=== PATIENT | female | born 1980 | race Caucasian/White ===

== ENCOUNTER → 2016-06-25 | Outpatient (CLI) | payer BC ==
--- NOTE | 2016-06-26 16:59 | XR ---
EXAMINATION TYPE: XR foot complete LT DATE OF EXAM: 06/25/2016 2:37 PM COMPARISON: NONE HISTORY: 28 year-old female left foot pain, plantar fasciitis TECHNIQUE: 3 views FINDINGS: Very mild degenerative spurring at the first MTP joint. No acute fracture, subluxation, or dislocation. There is a small plantar calcaneal spur noted. Small delineation to the Achilles tendon. IMPRESSION: Small plantar calcaneal spur.
== END | disposition home or self-care (01) ==
LOC: RADXRYALE 14:21
PROVIDERS: ATTEND Physician Assistant Medical
DX: M77.32 Calcaneal spur, left foot (principal)

== ENCOUNTER → 2017-09-16 | Outpatient (CLI) | payer BC ==
--- NOTE | 2017-09-16 10:56 | XR ---
EXAMINATION TYPE: XR abdomen 2V DATE OF EXAM: 09/16/2017 CLINICAL DATA: 37-year-old female with lower abdominal pain, [facility] COMPARISON: None FINDINGS: No dilated small bowel or air-fluid levels. Scattered air and stool seen throughout the colon extendi ng distally into the rectum. Mild stool burden. No suspicious calcifications identified. IMPRESSION: No evidence of bowel obstruction or free intraperitoneal air.
== END | disposition home or self-care (01) ==
LOC: RADXRYALE 08:46
PROVIDERS: ATTEND Physician Assistant Medical
DX: R10.30 Lower abdominal pain, unspecified (principal)
CPT/HCPCS: 74019

== ENCOUNTER → 2018-05-05 | Outpatient (CLI) | payer BC ==
--- NOTE | 2018-05-05 12:38 | CT ---
EXAMINATION TYPE: CT sinus wo con DATE OF EXAM: 05/05/2018 COMPARISON: None HISTORY: Facial pressure and pain CT DLP: 553 mGycm. Automated Exposure Control for Dose Reduction was Utilized. TECHNIQUE: CT scan of the sinuses is performed without contrast, axial images are obtained, coronal r eformatted images are also reviewed. FINDINGS: There is extensive soft tissue attenuation within the maxillary sinuses and ethmoid air shayne ls compatible with moderate sinusitis. Sphenoid sinus has a normal appearance. Frontal sinuses hypop lastic. The ostiomeatal complex is patent on the right and occluded on the left. There is a slight nasal sept al deviation. Visualized portion of mastoid air cells show no abnormal opacification. The globes are intact bilate rally. IMPRESSION: 1. Moderate sinusitis involving the ethmoid air cells and maxillary sinus with occlusion of the left ostiomeatal complex.
== END | disposition home or self-care (01) ==
LOC: RADCTMAIN 11:58
PROVIDERS: ATTEND Otolaryngology
DX: J32.2 Chronic ethmoidal sinusitis (principal); J32.0 Chronic maxillary sinusitis; J34.89 Other specified disorders of nose and nasal sinuses
CPT/HCPCS: 70486

== ENCOUNTER → 2018-05-11 | Outpatient (CLI) | payer BC ==
--- NOTE | 2018-05-11 11:10 | XR ---
EXAMINATION TYPE: XR chest 2V DATE OF EXAM: 05/11/2018 COMPARISON: NONE TECHNIQUE: PA and lateral views submitted. HISTORY: Cough FINDINGS: The lungs are clear and there is no pneumothorax, pleural effusion, or focal pneumonia. Hypertrophi c and degenerative change spine. No overt failure. IMPRESSION: 1. No acute process.
== END | disposition home or self-care (01) ==
LOC: RADXRYALE 10:53
PROVIDERS: ATTEND Family Medicine
DX: R05 Cough (principal)
CPT/HCPCS: 71046

== ENCOUNTER 2018-05-17 06:58 | Emergency (ER) | payer BC ==
--- NOTE | 2018-05-17 08:00 | ED ---
General Adult HPI - General Chief complaint: ENT Stated complaint: ENT Time Seen by Provider: 05/17/18 07:28 Source: patient, RN notes reviewed Mode of arrival: ambulatory Limitations: no limitations - History of Present Illness Initial comments: 38-year-old female without any significant past medical history presents to the emergency department for a chief complaint of left-sided facial pain. Patient states this is over the maxillary area as well as her left upper teeth. Patient states it is generalized in her upper teeth. Patient states she saw her ENT Dr. Mendes about 5 days ago and had a CAT scan that diagnosed sinusitis. CT obtained on 05/05/2018 did show moderate sinusitis with occlusion of the left ostiomeatal complex. Patient states that when she saw the ENT she did not have significant pain. However the next day she started having left-sided facial pain. She states she started taking Bactrim on for this. She is also taking Flonase. Patient states she is also concerned it may be dental pain. She states her dentist is not open for 2 more hours. She denies having any fevers or chills. Patient has no other complaints at this time including shortness of breath, chest pain, abdominal pain, nausea or vomiting, headache, or visual changes. - Related Data Previous Rx's Medication Instructions Recorded Acetaminophen-Codeine 300-30mg 1 tab PO Q6HR PRN #10 tablet 05/17/18 [Tylenol #3] Amoxicillin/Potassium Clav 1 tab PO Q12HR #20 tab 05/17/18 [Augmentin 875-125 Tablet] Ibuprofen [Motrin] 600 mg PO Q8HR PRN #20 tab 05/17/18 predniSONE 50 mg PO DAILY #5 tablet 05/17/18 Allergies Allergy/AdvReac Type Severity Reaction Status Date / Time No Known Allergies Allergy Verified 05/17/18 07:04 Review of Systems ROS Statement: Those systems with pertinent positive or pertinent negative responses have been documented in the HPI. ROS Other: All systems not noted in ROS Statement are negative. Past Medical History Past Medical History: GERD/Reflux, Rheumatoid Arthritis (RA) History of Any Multi-Drug Resistant Organisms: None Reported Past Surgical History: Orthopedic Surgery Additional Past Surgical History / Comment(s): bilateral feet Past Psychological History: No Psychological Hx Reported Smoking Status: Former smoker Past Alcohol Use History: Occasional Past Drug Use History: None Reported General Exam Limitations: no limitations General appearance: alert, in no apparent distress Head exam: Present: atraumatic, normocephalic, normal inspection Eye exam: Present: normal appearance, PERRL, EOMI. Absent: scleral icterus, conjunctival injection, periorbital swelling ENT exam: Present: mucous membranes moist, TM's normal bilaterally, normal external ear exam, other (Minimal tenderness over maxillary sinus. No erythema or edema present whatsoever.). Absent: normal oropharynx (fillingd noted in left upper teeth) Neck exam: Present: normal inspection, full ROM. Absent: tenderness, meningismus, lymphadenopathy Respiratory exam: Present: normal lung sounds bilaterally. Absent: respiratory distress, wheezes, rales, rhonchi, stridor Cardiovascular Exam: Present: regular rate, normal rhythm, normal heart sounds. Absent: systolic murmur, diastolic murmur, rubs, gallop, clicks Neurological exam: Present: alert, oriented X3, CN II-XII intact Psychiatric exam: Present: normal affect, normal mood Skin exam: Present: warm, dry, intact, normal color. Absent: rash Course Vital Signs 05/17/18 07:00 Temperature 97.8 F Pulse Rate 89 Respiratory 17 Rate Blood Pressure 122/88 O2 Sat by Pulse 100 Oximetry Medical Decision Making - Medical Decision Making 38-year-old female without significant past medical history presents for left- sided facial pain. Patient has had chronic sinusitis for about 6 months and recently had a CAT scan diagnosing this with occlusion of the left ostiomeatal complex. She states about 5 days ago she started to have pain that has now progressed to her left upper teeth. She does have pain when biting down on a tongue blade. However I do think this is likely more related to sinusitis. Patient was put on Bactrim, will recommend switching to Augmentin to cover for any potential causes as well. However did recommend following up with ENT to make sure this which is agreed upon. Will also give steroid as well as pain medications. Patient will follow up with ENT today as she has already tried to walk and however they do not accept walk-in patients. She will also follow up with dentist which was discussed with her. She will return here if she has any worsening symptoms. Vitals are stable, patient is afebrile. Disposition Clinical Impression: Sinusitis Disposition: HOME SELF-CARE Condition: Good Instructions (If sedation given, give patient instructions): Sinusitis (ED) Additional Instructions: Please take Augmentin instead of Bactrim after talking with ENT to make sure they agree. Please try steroid and continue nasal sprays. Take Motrin for pain, if pain is severe take Tylenol 3. Make sure to eat food while taking these medicines. Do not drive or operate machinery while taking Tylenol 3. Follow up with ENT in 1-2 days. Follow-up with dentist as soon as possible. Return here to the emergency department if your having any worsening symptoms. Prescriptions: Amoxicillin/Potassium Clav [Augmentin 875-125 Tablet] 1 tab PO Q12HR #20 tab Ibuprofen [Motrin] 600 mg PO Q8HR PRN #20 tab PRN Reason: Pain predniSONE 50 mg PO DAILY #5 tablet Acetaminophen-Codeine 300-30mg [Tylenol #3] 1 tab PO Q6HR PRN #10 tablet PRN Reason: Pain Is patient prescribed a controlled substance at d/c from ED?: Yes When asked, does pt state using other controlled substances?: No If prescribed controlled substance>3 days was MAPS reviewed?: Prescribed <3 Days If opioid is for acute pain is fill amount 7 days or less?: Yes If Rx opioid, was Start Talking consent form obtained?: Yes Referrals: Ascencion Barriga DO [Primary Care Provider] - 1-2 days Tadeo Patel DO [Doctor of Osteopathic Medicine] - 1-2 days Time of Disposition: 08:19
[2018-05-17 08:38] VITALS: BP 117/78; PULSE 86; RESP 18; TEMP 98.1
== END 2018-05-17 08:35 | disposition home or self-care (01) ==
LOC: EC 06:58
DX: J32.9 Chronic sinusitis, unspecified (principal); Z87.891 Personal history of nicotine dependence
CPT/HCPCS: 99283

== ENCOUNTER → 2018-06-09 | Outpatient (CLI) | payer BC ==
--- NOTE | 2018-06-10 13:58 | MM ---
Reason for exam: screening (asymptomatic). History: Patient is nulliparous. Family history of breast cancer in paternal grandmother at age 26. Benign excisional biopsy of the left breast, 2001. Physical Findings: A clinical breast exam by your physician is recommended on an annual basis and results should be correlated with mammographic findings. MG 3D Screening Mammo W/Cad Bilateral CC and MLO view(s) were taken. No prior studies available for comparison. The breast tissue is heterogeneously dense. This may lower the sensitivity of mammography. No suspicious abnormality. ASSESSMENT: Negative, BI-RAD 1 RECOMMENDATION: Routine screening mammogram of both breasts in 1 year.
== END | disposition home or self-care (01) ==
LOC: RADMAMWWP 10:46
PROVIDERS: ATTEND Family Medicine
DX: Z12.31 Encounter for screening mammogram for malignant neoplasm of breast (principal)
CPT/HCPCS: 77063; 77067

== ENCOUNTER → 2018-09-30 | Outpatient (CLI) | payer BC ==
--- NOTE | 2018-09-30 12:48 | CT ---
EXAMINATION TYPE: CT sinus wo con DATE OF EXAM: 09/30/2018 COMPARISON: CT sinuses May 05, 2018. HISTORY: Sinus surgery 4-2019. Congestion, loss of smell and taste x [address] DLP: 602 mGycm. Automated Exposure Control for Dose Reduction was Utilized. TECHNIQUE: CT scan of the sinuses is performed without contrast, axial images are obtained, coronal r eformatted images are also reviewed. FINDINGS: Mild mucosal thickening remains present in bilateral maxillary sinuses with some dependent fluid bilaterally, left greater than right. There is patchy opacity in the right sphenoid sinus on c urrent study and lateral aspect smaller caliber left sphenoid sinus on current study. Tevw-re-[id number] e mucosal thickening involving ethmoid sinuses bilaterally most prominent anterior right ethmoid sinu ses remains present. There is moderate mucosal thickening in the small caliber left frontal sinus. Th ere is hypoplastic right frontal sinus redemonstrated The surgically treated ostiomeatal complex is p atent bilaterally on coronal image 27. Visualized portion of mastoid air cells show no abnormal opacification. The globes are intact bilate rally. IMPRESSION: Persistent acute on chronic paranasal sinus disease despite interval surgery. Note is ma de of some improvement in findings after surgery with patency of the bilateral ostiomeatal complex no w identified.
== END | disposition home or self-care (01) ==
LOC: RADCTMAIN 12:06
PROVIDERS: ATTEND Otolaryngology
DX: J34.89 Other specified disorders of nose and nasal sinuses (principal); J32.9 Chronic sinusitis, unspecified
CPT/HCPCS: 70486

== ENCOUNTER → 2020-10-23 | Outpatient (CLI) | payer BC ==
--- NOTE | 2020-10-25 14:01 | MM ---
Reason for exam: screening (asymptomatic). Last mammogram was performed 2 years and 4 months ago. History: Patient is nulliparous. Family history of breast cancer in paternal grandmother at age 26. Benign excisional biopsy of the left breast, 2001. Took hormonal contraceptives beginning at age 16. Physical Findings: A clinical breast exam by your physician is recommended on an annual basis and results should be correlated with mammographic findings. MG Screening Mammo w CAD Bilateral CC and MLO view(s) were taken. Prior study comparison: June 09, 2018, bilateral MG 3d screening mammo w/cad. There are scattered fibroglandular densities. There is chronic nodularity in the right breast. No significant changes when compared with prior studies. ASSESSMENT: Benign, BI-RAD 2 RECOMMENDATION: Routine screening mammogram of both breasts in 1 year.
== END | disposition home or self-care (01) ==
LOC: RADMAMWWP 12:59
PROVIDERS: ATTEND Obstetrics & Gynecology Obstetrics
DX: Z12.31 Encounter for screening mammogram for malignant neoplasm of breast (principal)
CPT/HCPCS: 77067

== ENCOUNTER → 2021-11-05 | Outpatient (CLI) | payer BC ==
--- NOTE | 2021-11-05 12:09 | XR ---
EXAMINATION TYPE: XR lumbosacral spine min 4V DATE OF EXAM: 11/05/2021 CLINICAL HISTORY: pain COMPARISON: NONE TECHNIQUE: Frontal, lateral, and oblique images of the lumbar spine are obtained. FINDINGS: There are 5 lumbar type vertebral bodies identified. The lumbar spine shows satisfactory alignment without evidence of acute fracture or dislocation. Vertebral body heights are within normal limits. Disc spaces are well preserved. The overlying soft tissue appears unremarkable. IMPRESSION: No acute fracture or dislocation is seen in the lumbar spine.ICD 10 NO FRACTURE, INITIAL EVALUATION
== END | disposition home or self-care (01) ==
LOC: RADXRYALE 10:50
PROVIDERS: ATTEND Physician Assistant Medical
DX: M54.42 Lumbago with sciatica, left side (principal)
CPT/HCPCS: 72110

== ENCOUNTER → 2021-12-19 | Outpatient (CLI) | payer BC ==
--- NOTE | 2021-12-19 10:42 | MR ---
EXAMINATION TYPE: MR lumbar spine wo con DATE OF EXAM: 12/19/2021 COMPARISON: NONE HISTORY: Left side sciatica, lumbago TECHNIQUE: T1 and T2 axial and sagittal images of the lumbar spine are submitted. FINDINGS: There is no abnormal signal seen within the visualized spinal cord or paraspinal soft tissu es. At L1-2 there is no evidence of degenerative disc disease, disc herniation or canal stenosis. No fora juno encroachment. At L2-3 there is no evidence of degenerative disc disease, disc herniation or canal stenosis. No fora juno encroachment At L3-4 there is no evidence of degenerative disc disease, disc herniation or canal stenosis. No fora juno encroachment At L4-5 there is no evidence of degenerative disc disease, disc herniation or canal stenosis. No fora juno encroachment At L5-S1 there is broad-based central left paracentral disc bulging. Mild hypertrophic change of face ts. Neural foramina remain patent. IMPRESSION: 1. Mild broad-based central and left paracentral disc bulging at L5-S1 with no evidence of canal sten osis or foraminal impingement.
== END | disposition home or self-care (01) ==
LOC: RADMRIMAIN 09:18
PROVIDERS: ATTEND Family Medicine
DX: M51.17 Intervertebral disc disorders with radiculopathy, lumbosacral region (principal)
CPT/HCPCS: 72148

== ENCOUNTER → 2022-02-07 | Outpatient (CLI) | payer BC ==
--- NOTE | 2022-02-10 17:32 | MM ---
Reason for Exam: Screening (asymptomatic). Last mammogram was performed 1 year(s) and 3 month(s) ago. Patient History: Menarche at age 10. Patient has no children. Hormonal Contraceptives, from age 16 until age 39. 2001, Benign Excisional Biopsy on the left side. Paternal grandmother had breast cancer, age 26. Risk Values: Maritza 5 year model risk: 1.3%. NCI Lifetime model risk: 13.0%. Prior Study Comparison: 06/09/2018 Bilateral Screening Mammogram, [facility]. 10/23/2020 Bilateral Screening Mammogram, [facility]. Tissue Density: There are scattered fibroglandular densities. Findings: Analyzed By CAD. There is no suspicious group of microcalcifications or new suspicious mass in either breast. Overall Assessment: Benign, BI-RAD 2 Management: Screening Mammogram of both breasts in 1 year. 1. Patient should continue monthly self breast exams. 2. A clinical breast exam by your physician is recommended on an annual basis. 3. This exam should not preclude additional follow-up of suspicious palpable abnormalities. Electronically signed and approved by: Adithya Oropeza M.D. Radiologist
== END | disposition home or self-care (01) ==
LOC: RADMAMWWP 13:09
PROVIDERS: ATTEND Obstetrics & Gynecology Obstetrics
DX: Z12.31 Encounter for screening mammogram for malignant neoplasm of breast (principal); Z80.3 Family history of malignant neoplasm of breast; Z98.890 Other specified postprocedural states
CPT/HCPCS: 77067

== ENCOUNTER 2022-04-28 10:18 | Day surgery (SDC) | payer BC ==
[2022-04-22 13:03] VITALS: BMI 37.5
--- NOTE | 2022-04-28 09:28 | P.HPOB ---
History of Present Illness H&P Date: 04/28/22 Chief Complaint: Menorrhagia This is a 42-year-old female that presents with complaints of heavy menstrual bleeding. Patient is a known tobacco abuser and is neutral candidate for estrogen and progesterone oral contraceptive pills and declines other options. Patient wishes endometrial ablation. Ultrasound revealing normal uterine size of 7 cm. Review of Systems Constitutional: Denies chills, Denies fatigue, Denies fever Ears, nose, mouth and throat: Denies headache Cardiovascular: Denies leg edema Respiratory: Denies dyspnea Gastrointestinal: Denies constipation, Denies diarrhea Genitourinary: Reports menorrhagia, Denies Past Medical History Past Medical History: GERD/Reflux, Rheumatoid Arthritis (RA) Additional Past Medical History / Comment(s): HEAVY, FREQUENT BLEEDING AND CRAMPING History of Any Multi-Drug Resistant Organisms: None Reported Past Surgical History: Orthopedic Surgery Additional Past Surgical History / Comment(s): bilateral feet. SINUS SX. COLONOSCOPY X 3 Past Anesthesia/Blood Transfusion Reactions: No Reported Reaction Smoking Status: Former smoker, Vaper - Past Family History Mother Family Medical History: Deep Vein Thrombosis (DVT), Pulmonary Embolus Additional Family Medical History / Comment(s): LAST YEAR Medications and Allergies Home Medications Medication Instructions Recorded Confirmed Type Esomeprazole Magnesium [NexIUM 20 mg PO DAILY 04/22/22 04/22/22 History 24Hr] Meloxicam [Mobic] 15 mg PO DAILY 04/22/22 04/22/22 History Allergies Allergy/AdvReac Type Severity Reaction Status Date / Time No Known Allergies Allergy Verified 04/22/22 12:55 Exam Osteopathic Statement: *. No significant issues noted on an osteopathic struc tural exam other than those noted in the History and Physical/Consult. Targeted physical exam is performed in this date and product advisor a well-nourished well-developed non female in no acute distress, breathing is nonlabored, heart has a regular rate and rhythm, abdomen is soft and nontender, external genitalia is noted to be normal for age the vaginal mucosa is noted to be pink and well rugated, the uterus is normal in size with no adnexal masses appreciated. Assessment and Plan (1) Menorrhagia Status: Acute Code(s): N92.0 - EXCESSIVE AND FREQUENT MENSTRUATION WITH REGULAR CYCLE SNOMED Code(s): 025401516 Plan: 42-year-old 0 with complaints of heavy menstrual bleeding. Patient is counseled on options and requests NovaSure endometrial ablation. We'll proceed with hysteroscopy, dilation and curettage with endometrial ablation. Procedure was reviewed. ACOG pamphlet is given to patient and reviewed by patient as well.
[~2022-04-28 10:18] MED LIST: DEXAMETHASONE SOD PHOSPHATE 4 MG/ML 1 ML VIAL IV ONE; HYDROmorphone 0.5 MG/0.5 ML SYRINGE IVP PRN; LACTATED RINGERS 1,000 ML IV SCH; LIDOCAINE 1% (10MG/ML) FOR IV START INTRADERMA PRN; METOCLOPRAMIDE 5 MG/ML 2 ML VIAL IVP PRN; ONDANSETRON 4 MG/2 ML VIAL IVP ONE; Pre Op ABX Message 1 EACH MISC MISCELLANE ONE
[2022-04-28 11:19] VITALS: TEMP 97.6
[2022-04-28] MEDS ORDERED: ONDANSETRON 4 MG/2 ML VIAL IVP ONE (11:24)
[2022-04-28] MEDS ORDERED: DEXAMETHASONE SOD PHOSPHATE 4 MG/ML 1 ML VIAL IVP ONE (11:24)
[2022-04-28] MEDS ORDERED: fentaNYL (PF) 50 MCG/ML 2 ML AMP ONE (12:54)
[2022-04-28] MEDS ORDERED: LIDOCAINE 2% INJ 20 MG/ML (2 ML VIAL) ONE (12:54)
[2022-04-28] MEDS ORDERED: MIDAZOLAM 2 MG/2 ML VIAL ONE (12:54)
[2022-04-28] MEDS ORDERED: PROPOFOL 10 MG/ML 20 ML VIAL IV ONE (12:54)
--- NOTE | 2022-04-28 13:35 | P.OP ---
Date of Procedure: 04/28/22 Preoperative Diagnosis: Heavy menstrual bleeding Postoperative Diagnosis: Same, plus fundal uterine defect Procedure(s) Performed: Hysteroscopy, dilation and curettage Anesthesia: MAC Surgeon: Elizabeth John Estimated Blood Loss (ml): 5 IV fluids (ml): 100 Urine output (ml): 100 Pathology: other (Endometrial curettings) Condition: stable Disposition: PACU Indications for Procedure: Heavy menstrual bleeding Operative Findings: Uterus with noted fundal defect just lateral to the right fallopian tube ostia. No bleeding was appreciated thinness at the top of the defect was appreciated therefore ablation was not attempted secondary to risk of thermal injury. Description of Procedure: Patient was taken back to the operative suite where general anesthesia was obtained without difficulty by the anesthesia department. The patient was prepped and draped in normal sterile fashion in the dorsal lithotomy position. A red rubber catheter was used to drain the bladder of clear yellow urine. Weighted speculum was placed in the posterior vaginal vault the anterior lip of the cervix was visualized and grasped with a single-tooth tenaculum. The endocervical canal was then easily serially dilated. A hysteroscope was placed through the cervix and toward the endometrial cavity. An intact cavity was appreciated although a fundal defect was appreciated. On further inspection the uppermost part of the defect appeared thin in nature. No bleeding was appreciated from the defect. Pictures were taken. The hysteroscope was then removed without difficulty. A sharp curettage was then performed until a gritty texture was appreciated. The specimens and sent to pathology for analysis. NovaSure and Demi oblation was not completed secondary to uterine defect. The single-tooth tenaculum was taken off of the anterior lip of the cervix. Hemostasis was appreciated. All instrument removed from the patient's vaginal vault. All counts were noted be correct 2. Patient was taken back to the recovery room awake in stable condition.
[2022-04-28 13:42] VITALS: RESP 16
[2022-04-28 14:18] VITALS: BP 154/88; PULSE 60
== END 2022-04-28 14:28 | disposition home or self-care (01) ==
LOC: OR 10:18
PROVIDERS: ATTEND Obstetrics & Gynecology Obstetrics
DX: N92.0 Excessive and frequent menstruation with regular cycle (principal); N85.8 Other specified noninflammatory disorders of uterus; K21.9 Gastro-esophageal reflux disease without esophagitis; M06.9 Rheumatoid arthritis, unspecified; Z79.1 Long term (current) use of non-steroidal anti-inflammatories (NSAID); Z79.899 Other long term (current) drug therapy; F17.290 Nicotine dependence, other tobacco product, uncomplicated
CPT/HCPCS: 58558; 81025; 88305; J2250; J1100; J2405; J3010; J2704; J2001

== ENCOUNTER → 2022-06-26 | Outpatient (CLI) | payer BC ==
--- NOTE | 2022-06-26 17:21 | CT ---
EXAMINATION TYPE: CT sinus wo con CT DLP: 673.2 mGycm, Automated exposure control for dose reduction was used. DATE OF EXAM: 06/26/2022 4:31 PM COMPARISON: 09/30/2018. CLINICAL INDICATION:Female, 42 years old with history of J32.9 CHRONIC SINUSITIS, UNSPECIFIED, chroni c sinusitis TECHNIQUE: Multiple thin axial images were obtained through the paranasal sinuses without the use of IV contrast. Additional coronal and sagittal reformatted images were submitted for evaluation. Contrast used: none Oral contrast used: none FINDINGS: Frontal sinuses: Hypoplastic bilaterally. Scattered secretions than left. Frontal Recess: Opacified l eft patent right. Maxillary Sinuses: Mild mucosal thickening along the inferior aspects bilaterally. Maxillary Infundibula([facility]): Bilateral antrostomy changes. Ethmoid sinuses: Normally developed and aerated. Ethmoidal notch: Protected and abutting the lateral lamina. Sphenoid sinuses: Normally developed and aerated. There is sellar sphenoid sinus pneumatization witho ut evidence of dehiscence. No dehiscence of carotid canal. No evidence of optic nerve dehiscence wit hin the sphenoid sinus. No evidence of Onodi cells. Sphenoethmoidal recesses: Clear. Nasal septum: Within normal limits.. Nasal Turbinates: Within normal limits. Mastoid air cells & middle ears: The air cells are clear. The middle ears are grossly unremarkable. Modified Soft tissues & Brain: Partially seen without gross abnormality. Globes are intact. Other: Cribriform plate demonstrates symmetric Keros classification type 2 cribriform plate. No evidence of bony dehiscence of skull base. Lamina papyracea is intact without evidence of remote orbital fracture or orbital prolapse into the e thmoid sinus. Nonfusion of the posterior arch of C1. IMPRESSION: 1. Mild nasal mucosal sinus disease. No significant change from 2019. 2. The bilateral antrostomy changes. The left frontonasal opacified, but again sphenoethmoidal recess es are clear.
== END | disposition home or self-care (01) ==
LOC: RADCTMAIN 16:14
PROVIDERS: ATTEND Otolaryngology
DX: J32.0 Chronic maxillary sinusitis (principal); J34.89 Other specified disorders of nose and nasal sinuses
CPT/HCPCS: 70486

== ENCOUNTER → 2023-01-19 | Outpatient (CLI) | payer BC ==
[2023-01-19 15:55] LABS: Blood Urea Nitrogen 9.6 mg/dL (9.0-27.0); Carbon Dioxide 27.6 mmol/L (21.6-31.8); Chloride 103 mmol/L (96-109); Potassium 5.1 mmol/L (3.5-5.5); Sodium 141 mmol/L (135-145)
[2023-01-19 15:56] LABS: Basophils # (A) 0.06 X 10*3/uL (0.00-0.10); Basophils % (A) 0.9 %; Eosinophils # (A) 0.18 X 10*3/uL (0.04-0.35); Eosinophils % (A) 2.8 %; HCT 40.5 % (37.2-46.3); HGB 13.2 g/dL (12.0-15.0); Lymphocytes # (A) 2.49 X 10*3/uL (0.90-5.00); Lymphocytes % (A) 38.4 %; MCH 28.8 pg (27.0-32.0); MCHC 32.6 g/dL (32.0-37.0); MCV 88.2 FL (80.0-97.0); Mean Platelet Volume 10.4 FL (9.5-12.2); Monocytes % (A) 7.7 %; NRBC Per 100 WBC 0 X 10*3/uL (0.00-0.01); Neutrophils # (A) 3.25 X 10*3/uL (1.80-7.70); Platelet Count 481 X 10*3/uL (140-440); RBC 4.59 X 10*6/uL (4.10-5.20); RDW 12.6 % (11.5-14.5); WBC 6.49 X 10*3/uL (4.50-10.00)
== END | disposition home or self-care (01) ==
LOC: LABPAT 09:56
PROVIDERS: ATTEND Obstetrics & Gynecology Obstetrics
DX: Z01.812 Encounter for preprocedural laboratory examination (principal); N94.6 Dysmenorrhea, unspecified; N92.0 Excessive and frequent menstruation with regular cycle
CPT/HCPCS: 80051; 82565; 84520; 85025; 86850; 86900; 86901; 87086

== ENCOUNTER 2023-01-27 05:36 | Day surgery (SDC) | payer BC ==
[2023-01-27] MEDS ORDERED: ACETAMINOPHEN IV (For NPO) 1,000 MG in EMPTY BAG 1 BAG IVPB PRN (06:00)
[2023-01-27] MEDS ORDERED: LIDOCAINE 1% (10MG/ML) FOR IV START INTRADERMA PRN (06:08)
[2023-01-27] MEDS ORDERED: ONDANSETRON 4 MG/2 ML VIAL IVP ONE (06:08)
[2023-01-27] MEDS ORDERED: DEXAMETHASONE SOD PHOSPHATE 4 MG/ML 1 ML VIAL IV ONE (06:08)
[2023-01-27] MEDS: LACTATED RINGERS 1,000 ML IV SCH (06:21)
[2023-01-27] MEDS ORDERED: ACETAMINOPHEN IV (For NPO) 1,000 MG/100 ML VIAL IVPB ONE (06:30)
[2023-01-27] MEDS ORDERED: MIDAZOLAM 2 MG/2 ML VIAL IVP ONE (06:41)
[2023-01-27] MEDS ORDERED: HYDROmorphone 0.5 MG/0.5 ML SYRINGE IVP PRN (07:00)
[2023-01-27] MEDS ORDERED: MIDAZOLAM 2 MG/2 ML VIAL IV PRN (07:00)
[2023-01-27] MEDS ORDERED: diphenhydrAMINE 50 MG/ML 1 ML VIAL ONE (07:03)
[2023-01-27] MEDS ORDERED: diphenhydrAMINE 50 MG/ML 1 ML VIAL IVP ONE (07:05)
[2023-01-27] MEDS ORDERED: ROCURONIUM 10 MG/ML (5 ML VIAL) IV ONE (07:29)
[2023-01-27] MEDS ORDERED: GLYCOPYRROLATE 0.2 MG/ML 2 ML VIAL ONE (07:29)
[2023-01-27] MEDS ORDERED: MIDAZOLAM 2 MG/2 ML VIAL ONE (07:29)
[2023-01-27] MEDS ORDERED: fentaNYL (PF) 50 MCG/ML 2 ML AMP ONE (07:29)
[2023-01-27] MEDS ORDERED: PROPOFOL 10 MG/ML 20 ML VIAL IV ONE (07:29)
[2023-01-27] MEDS ORDERED: NEOSTIGMINE 1 MG/ML 10 ML VIAL ONE (07:29)
[2023-01-27] MEDS ORDERED: HYDROmorphone (PF) 1 MG/ML ONE (07:29)
[2023-01-27] MEDS ORDERED: SUCCINYLCHOLINE CHLORIDE 200 MG/10 ML VIAL IV ONE (07:29)
[2023-01-27] MEDS ORDERED: LIDOCAINE 1% INJ 10MG/ML (20 ML MDV) ONE (07:29)
[2023-01-27] MEDS ORDERED: BUPIVACAINE (PF) 0.25% 30 ML VIAL SQ ONE ×2 (08:24)
[2023-01-27] MEDS ORDERED: LACTATED RINGERS 1,000 ML IV ONE (09:05)
[2023-01-27] MEDS ORDERED: Acetaminophen-Codeine 300-30mg TAB PO PRN ×2 (09:22)
[2023-01-27] MEDS ORDERED: SIMETHICONE 80 MG CHEWABLE PO PRN (09:22)
--- NOTE | 2023-01-27 09:27 | P.HPOB ---
History of Present Illness H&P Date: 01/27/23 Chief Complaint: Heavy menstrual bleeding, dysmenorrhea, failed ablation 42-year-old 0 that presents for robotic cyst vaginal hysterectomy with bilateral salpingectomy, diagnostic cystoscopy. Patient has been struggling with heavy menstrual bleeding and dysmenorrhea. Patient underwent endometrial ablation with no relief of her symptoms. In addition patient tried a course of oral contraceptive pills in an attempt to lessen her bleeding without success. Patient states mental cycles are regular every month with a heavy flow lasting up to 9 days. Patient notes positive dysmenorrhea. Patient request definitive treatment with hysterectomy. Ovarian conservation is discussed given patient's age and she agrees. Review of Systems Constitutional: Denies chills, Denies fatigue, Denies fever Ears, nose, mouth and throat: Denies headache Cardiovascular: Reports leg edema Respiratory: Denies dyspnea Gastrointestinal: Denies nausea, Denies vomiting Genitourinary: Reports Past Medical History Past Medical History: GERD/Reflux, Rheumatoid Arthritis (RA) Additional Past Medical History / Comment(s): HEAVY, FREQUENT BLEEDING AND CRAMPING History of Any Multi-Drug Resistant Organisms: None Reported Past Surgical History: Breast Surgery, Orthopedic Surgery, Uterine Ablation Additional Past Surgical History / Comment(s): bilateral feet, lft breast lumpectomy Past Anesthesia/Blood Transfusion Reactions: No Reported Reaction Additional Past Anesthesia/Blood Transfusion Reaction / Comment(s): has woken during procedure in past Smoking Status: Former smoker, Vaper - Past Family History Mother Family Medical History: Deep Vein Thrombosis (DVT), Pulmonary Embolus Additional Family Medical History / Comment(s): LAST YEAR Medications and Allergies Home Medications Medication Instructions Recorded Confirmed Type Meloxicam [Mobic] 15 mg PO DAILY 04/22/22 01/22/23 History Co Q 10 (Unk) 1 tab PO DAILY 01/22/23 01/22/23 History Omeprazole 20 mg PO DAILY 01/22/23 01/22/23 History Red Yeast Rice 600 mg PO DAILY 01/22/23 01/22/23 History Super C(Ukn) 1 tab PO DAILY 01/22/23 01/22/23 History Allergies Allergy/AdvReac Type Severity Reaction Status Date / Time No Known Allergies Allergy Verified 01/27/23 06:08 Exam Osteopathic Statement: *. No significant issues noted on an osteopathic structural exam other than those noted in the History and Physical/Consult. Vital Signs Temp Pulse Pulse Resp BP Pulse Ox 01/27/23 09:15 97.9 F 107 H 12 158/75 96 01/27/23 06:50 83 16 132/89 100 01/27/23 06:09 97.8 F 81 131/75 97 Intake and Output 01/26/23 01/27/23 01/27/23 22:59 06:59 14:59 Intake Total 500 850 Output Total 150 Balance 500 700 Intake: IV 500 850 Output: Urine 100 Estimated Blood Loss 50 Other: Weight 93 kg Targeted physical exam is performed in this date and also well-nourished well- developed non female in no acute distress, breathing is noted to be nonlabored, heart has a regular rate and rhythm, abdomen is soft and nontender, on genitourinary exam the external genitalia is noted to be normal for age the vaginal mucosa was noted to be pink and well rugated cervix is without lesion the uterus is mobile with no adnexal masses appreciated. Assessment and Plan (1) Dysmenorrhea Current Visit: Yes Status: Acute Code(s): N94.6 - DYSMENORRHEA, UNSPECIFIED SNOMED Code(s): 560653735 (2) Menorrhagia Narrative/Plan: Failed medical management, failed endometrial ablation Current Visit: No Status: Acute Code(s): N92.0 - EXCESSIVE AND FREQUENT MENSTRUATION WITH REGULAR CYCLE SNOMED Code(s): 650108814 Plan: 42-year-old female that presents for robotic-assisted vaginal hysterectomy, bilateral salpingectomy, diagnostic cystoscopy. Patient is counseled on risks of surgery including but not limited to infection, bleeding, damage to bladder, bowel, ureteric injury. Patient states understanding and wishes to proceed.
--- NOTE | 2023-01-27 09:33 | P.OP ---
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 Procedure(s) Performed: Robotic-assisted vaginal hysterectomy, bilateral salpingectomy, diagnostic cystoscopy Anesthesia: IRIS Surgeon: Elizabeth John Records Tech #1: Luigi Mayo Estimated Blood Loss (ml): 50 IV fluids (ml): 700 Urine output (ml): 100 Pathology: other (Uterus cervix bilateral fallopian tubes) Condition: stable Disposition: PACU Indications for Procedure: Heavy menstrual bleeding, dysmenorrhea failed medical management, failed endometrial ablation Operative Findings: Globular uterus normal ovaries bilaterally Description of Procedure: Patient was taken back to the operating suite where general anesthesia was obtained without difficulty by the anesthesia department. She was prepped and draped in normal sterile fashion in the dorsal lithotomy position. A Davidson catheter was then placed under sterile technique. A weighted speculum was placed in the posterior vaginal vault the anterior lip of the cervix was visualized and grasped with a single-tooth tenaculum. Endocervical canal was then serially dilated and a V care uterine miniplate was advanced into the cervix as a means to miniplate the uterus throughout the procedure. The balloon was insufflated and the cervical cap was placed snugly against the cervix. All instruments were then removed from the patient's vaginal vault. Attention was then turned the patient's abdomen where approximately 2 finger breaths above the umbilicus a small skin incision is made. Through this incision the various needles placed. Once the Veress needle was deemed to be in the proper position with a drop of CO2 pressure with insufflation of CO2 gas CO2 insufflation was allowed to occur. At this time an 8 mm trocar and sleeve with the laparoscope in place was placed through the skin incision and toward the pneumoperitoneum. The above-noted findings were then visualized. Additional port sites are now placed at 10 cm lateral and 3 cm inferior to midline port these are operative ports and placed under direct visualization. In the left upper quadrant a 12 mm trocar and sleeve is placed under direct visualization. The da Joe robot is undocked in usual fashion. In the right operative arm the monopolar scissors is placed in the left operative arm the bipolar forceps is placed. Attention was then turned to the patient's left fallopian tube which was elevated and mesosalpinx was coagulated and transected. This continued toward the uterine ovarian ligament which was coagulated distally and proximally and divided. The round ligament was then visualized coagulated and transected. Hemostasis was noted. The bladder flap from the left was then created using sharp and blunt dissection. Attention was then turned the patient's right fallopian tube which was elevated and mesosalpinx was coagulated and transected. The utero-ovarian ligament was visualized coagulated and transected hemostasis was noted. The round ligament was visualized coagulated distally and proximally and divided. The bladder flap from the right was then created using sharp and blunt dissection. A Ray-Oz was then advanced into the uterus as a means to further dissect the bladder away from the operating field. The ascending branch of the uterine artery on the right was visualized regulated and transected with good hemostasis being noted. This was then repeated on the opposite side. At this point the only remaining attachment was a vaginal attachment therefore colpotomy incision was made in a circumferential fashion. The uterus was then delivered through the vaginal opening. The pelvis was then copiously irrigated and the vaginal cuff was closed. 0 Vicryl in a nbfdyu-vb-esvhn fashion was used to close the vaginal cuff, Katherine 5 sutures were used to obtain closure. The pelvis was then once again irrigated and no bleeding was appreciated. All instruments were then removed from the patient's abdomen and the da Joe was undocked in the usual fashion. Attention under the patient's Davidson catheter which was noted to be draining clear yellow urine and this was removed. A cystoscopy was then performed. The cystoscope was placed through the urethra and toward the bladder bladder bubble was appreciated a complete survey of the bladder revealed normal mucosa with spillage of clear yellow urine through ureteral orifices. The cystoscope was removed and the Davidson catheter was replaced. The vaginal vault was cleared of any clots and debris and hemostasis was appreciated. All counts were noted to be correct 2 at the end of the procedure. Patient tolerated procedure well and was taken to the recovery room awake in stable condition.
[2023-01-27] MEDS ORDERED: IBUPROFEN IV 800 MG in SODIUM CHLORIDE 0.9% 250 ML IV SCH (18:00)
[2023-01-27] MEDS: SENNOSIDES-DOCUSATE SODIUM 1 EACH TAB PO SCH (20:43)
[2023-01-27] MEDS: IBUPROFEN 600 MG TAB PO PRN (23:37)
[2023-01-28] MEDS: ACETAMINOPHEN TAB 325 MG TAB PO PRN ×2 (03:26→09:02)
[2023-01-28] MEDS: IBUPROFEN 600 MG TAB PO PRN ×2 (05:49→11:43)
[2023-01-28 07:07] LABS: Basophils # (A) 0.1 k/uL (0-0.2); Basophils % (A) 0 %; Eosinophils # (A) 0.1 k/uL (0-0.7); Eosinophils % (A) 1 %; HCT 37.2 % (34.0-46.0); HGB 12.2 gm/dL (11.4-16.0); Lymphocytes # (A) 3.8 k/uL (1.0-4.8); Lymphocytes % (A) 33 %; MCH 29.1 pg (25.0-35.0); MCHC 32.8 g/dL (31.0-37.0); MCV 88.9 fL (80.0-100.0); Mean Platelet Volume 7.6; Monocytes # (A) 0.5 k/uL (0-1.0); Monocytes % (A) 4 %; Neutrophils # (A) 6.9 k/uL (1.3-7.7); Neutrophils % (A) 60 %; Platelet Count 409 k/uL (150-450); RBC 4.18 m/uL (3.80-5.40); RDW 12.6 % (11.5-15.5); WBC 11.7 k/uL (3.8-10.6)
[2023-01-28] MEDS: SENNOSIDES-DOCUSATE SODIUM 1 EACH TAB PO SCH (07:34)
[2023-01-28] MEDS: LACTATED RINGERS 1,000 ML IV SCH (07:44)
[2023-01-28 08:25] VITALS: BP 113/76; PULSE 63; RESP 15; TEMP 98
[2023-01-28] MEDS ORDERED: ACETAMINOPHEN TAB 325 MG TAB PO PRN (09:24)
--- NOTE | 2023-01-28 12:10 | P.DS ---
Providers Date of admission: 01/27/2023 Expected date of discharge: 01/28/23 Attending physician: Elizabeth John Primary care physician: Ascencion Barriga - Discharge Diagnosis(es) (1) Dysmenorrhea Status: Acute (2) Menorrhagia Status: Acute (3) S/P hysterectomy Status: Acute Hospital Course: This is a 42-year-old patient that presented to the hospital on 01/27 for scheduled robotic cyst vaginal hysterectomy with bilateral salpingectomy, diagnostic cystoscopy. Patient has a noted history of heavy menstrual bleeding and increasing dysmenorrhea. Patient has failed endometrial ablation and medical management. Patient desires definitive treatment with hysterectomy. Ovarian conservation was discussed given patient's aide. Patient states understanding and agrees to ovarian conservation. Patient was taken back to the operating suite where hysterotomy was performed without difficulty. For full details on the procedure please see the dictated operative report. Patient's postoperative course has been uneventful. On this postoperative day #1 she is ambulating and voiding without difficulty. She is tolerating a regular diet without nausea or vomiting. She states her pain is well-controlled. She denies concerns. She would like discharge home. Patient Condition at Discharge: Good Plan - Discharge Summary Discharge Rx Participant: No New Discharge Prescriptions: No Action Meloxicam [Mobic] 15 mg PO DAILY Super C(Ukn) 1 tab PO DAILY Omeprazole 20 mg PO DAILY Co Q 10 (Unk) 1 tab PO DAILY Red Yeast Rice 600 mg PO DAILY Discharge Medication List Meloxicam [Mobic] 15 mg PO DAILY 04/22/22 [History] Co Q 10 (Unk) 1 tab PO DAILY 01/22/23 [History] Omeprazole 20 mg PO DAILY 01/22/23 [History] Red Yeast Rice 600 mg PO DAILY 01/22/23 [History] Super C(Ukn) 1 tab PO DAILY 01/22/23 [History] Follow up Appointment(s)/Referral(s): Elizabeth John DO [Doctor of Osteopathic Medicine] - 2 Weeks Patient Instructions/Handouts: Laparoscopic Hysterectomy (DC) Activity/Diet/Wound Care/Special Instructions: No tub baths or intercourse until cleared by myself, [id number] ibuprofen and Tylenol as needed for pain. Senokot S as needed for bowel movements. Patient is to call the office make a routine appointment in 2 weeks. Bleeding precautions are reviewed. Discharge Disposition: HOME SELF-CARE
--- NOTE | 2023-01-30 10:48 | P.ANPRN ---
Procedure Note - Anesthesia - Epidural/Spinal Spinal Time Out Performed: Yes Date of Procedure: 01/27/23 Procedure Start Time: 06:40 Procedure Stop Time: 06:43 Location of Patient: PreOp Indication: Acute Post-Operative Pain, Requested by Surgeon Sedation Type: Sedate with meaningful contact maintained Preparation: Sterile Prep Position: Sitting Needle Guage: 25 Blood Aspirated: No Pain Paresthesia on Injection Noted: No Events: Uneventful and Well Tolerated (Duramorph 300 mics plus fentanyl 25 mics was given intrathecally)
--- NOTE | 2023-01-30 10:50 | P.PN ---
Progress Note - Text 01/28/23 622am 42-year-old female status post vaginal hysterectomy by Dr. mohamud. Patient received a spinal Duramorph for postop pain control, seen and evaluated, she has a VAS of 1 with no complains of nausea vomiting she has mild pruritus which should subside
== END 2023-01-28 11:45 | disposition home or self-care (01) ==
LOC: OR 05:36 → 4FBP 09:15 → OR 01-28 11:45
PROVIDERS: ATTEND Obstetrics & Gynecology Obstetrics
DX: N83.8 Other noninflammatory disorders of ovary, fallopian tube and broad ligament (principal); N72 Inflammatory disease of cervix uteri; N92.0 Excessive and frequent menstruation with regular cycle; N94.6 Dysmenorrhea, unspecified; K21.9 Gastro-esophageal reflux disease without esophagitis; M06.9 Rheumatoid arthritis, unspecified; Z87.891 Personal history of nicotine dependence; Z98.890 Other specified postprocedural states; Z79.1 Long term (current) use of non-steroidal anti-inflammatories (NSAID); Z79.899 Other long term (current) drug therapy
CPT/HCPCS: 52281; 58552; S2900; 81025; 85025; 88307

== ENCOUNTER → 2023-12-24 | Outpatient (CLI) | payer BC ==
--- NOTE | 2023-12-24 17:47 | CT ---
EXAMINATION TYPE: CT angio abdomen pelvis CT DLP: 1550.8 mGycm, Automated exposure control for dose reduction was used. DATE OF EXAM: 12/24/2023 3:59 PM COMPARISON:Abdominal radiograph 09/16/2017 CLINICAL INDICATION:Female, 43 years old with history of S40.011D; Abdominal pain, Nausea, bloating. Pt states she had a previous CT scan that showed a filling defect in the mesenteric artery. TECHNIQUE: Multiple thin slice sub-millimeter images were obtained through the abdomen and pelvis bef ore and after administration of contrast. Patient was given Isovue 370, 100 cc intravenously. 3-D r econstructed images and maximum intensity projection images were obtained of the arterial vasculature of the abdomen and pelvis. FINDINGS: CTA Abdomen and pelvis: The abdominal aorta does not demonstrate aneurysmal dilatation. No evidence f or intramural hematoma or dissection. The origins of the superior mesenteric artery, renal arteries, inferior mesenteric artery, and celiac axis are patent. The mesenteric arteries patent without filli ng defect identified. The iliac vessels are normal in morphology. VISCERA: The liver, spleen, adrenal glands, kidneys, pancreas, and gallbladder are not optimally enha nced due the arterial phase utilized. LIVER: Right hepatic lobe 1.2 cm enhancing lesion (series 6, image 42). Additional smaller enhancing foci within the liver. GALLBLADDER AND BILE DUCTS: Cholelithiasis. No biliary duct dilatation. PANCREAS: Unremarkable. SPLEEN: Unremarkable. ADRENAL GLANDS: Unremarkable. KIDNEYS AND URETERS: No evidence of hydronephrosis or renal calculus. The kidneys enhance symmetrical ly. PELVIS BLADDER: Unremarkable REPRODUCTIVE: The uterus is surgically absent. Left ovarian cystic changes. ABDOMEN & PELVIS STOMACH AND BOWEL: Stomach and duodenum are unremarkable. Distal colonic diverticulosis. No focal wal l thickening or surrounding inflammatory changes. The appendix is within normal limits. No evidence o f bowel obstruction. PERITONEUM: No evidence of pneumoperitoneum or free fluid. MUSCULOSKELETAL: No acute osseous abnormalities LYMPH NODES: No evidence for lymphadenopathy. SOFT TISSUE/ABDOMINAL WALL: Unremarkable IMPRESSION 1. No evidence of vascular occlusion. No evidence of filling defect within the mesentery artery. No prior imaging is available for comparison. 2. No evidence of abdominal aortic aneurysm. No evidence for intramural hematoma or dissection. No si gnificant atherosclerotic disease. 3. Right hepatic lobe 1.2 cm enhancing lesion. Additional small enhancing foci within the liver. May represent flash filling hemangiomas versus other etiologies. Correlation with prior imaging is recomm ended. Otherwise consider further evaluation with CT or MR abdomen with IV contrast (liver mass jose antonio col). 4. Colonic diverticulosis without evidence for acute diverticulitis. [facility], , 12/24/2023 5:45 PM
== END | disposition home or self-care (01) ==
LOC: RADCTMAIN 14:59
PROVIDERS: ATTEND Family Medicine
DX: K57.30 Diverticulosis of large intestine without perforation or abscess without bleeding (principal); K80.20 Calculus of gallbladder without cholecystitis without obstruction; R14.0 Abdominal distension (gaseous); R11.0 Nausea
CPT/HCPCS: 74174; Q9967

== ENCOUNTER → 2024-05-02 | Outpatient (CLI) | payer BC ==
--- NOTE | 2024-05-02 11:07 | XR ---
EXAMINATION TYPE: XR knee complete RT DATE OF EXAM: 05/02/2024 CLINICAL INDICATION: Female, 44 years old with history of [id number] RT KNEE PAIN, pain TECHNIQUE: 3 views of the knee were obtained. COMPARISON: None. FINDINGS: There is no acute fracture/dislocation evident in the right knee. Pjnn-xo-opelssae tricomp artmental joint space loss without spurring is seen. The overlying soft tissue appears unremarkable. IMPRESSION: As above. [facility], , 05/02/2024 11:05 AM
== END | disposition home or self-care (01) ==
LOC: RADXRYALE 10:45
PROVIDERS: ATTEND Physician Assistant
DX: M25.561 Pain in right knee (principal)

== ENCOUNTER → 2024-06-17 | Outpatient (CLI) | payer BC ==
--- NOTE | 2024-06-17 11:38 | MM ---
Reason for Exam: Screening (asymptomatic). Last mammogram was performed 2 year(s) and 5 month(s) ago. Patient History: Menarche at age 10. Patient has no children. Hysterectomy at age 43. Hormonal Contraceptives, from age 16 until age 39. 2001, Benign Excisional Biopsy on the left side. Paternal grandmother had breast cancer, age 26. Risk Values: Maritza 5 year model risk: 1.4%. NCI Lifetime model risk: 12.5%. Prior Study Comparison: 06/09/2018 Bilateral Screening Mammogram, [facility]. 10/23/2020 Bilateral Screening Mammogram, [facility]. 02/07/2022 Bilateral MG screening mammo w CAD, [facility]. Tissue Density: The breasts are heterogeneously dense, which may obscure small masses. Findings: Analyzed By CAD. Right breast: There is no suspicious group of microcalcifications or new suspicious mass. Left breast: There is no suspicious group of microcalcifications or new suspicious mass. Overall Assessment: Negative, BI-RAD 1 Management: Screening Mammogram of both breasts in [address] [facility] will attempt to contact patient to return for supplemental views and ultrasound if indicated. Patient should continue monthly self-breast exams. A clinical breast exam by your physician is recommended on an annual basis. This exam should not preclude additional follow-up of suspicious palpable abnormalities. Note on Maritza scores and lifetime risk: 1. A Maritza score greater than 3% is considered moderate risk. If this is the case, consider specialist referral to assess eligibility for a risk reducing agent. 2. If overall lifetime risk for the development of breast cancer is 20% or higher, the patient may qualify for future screening with alternating mammogram and breast MRI. [facility], , 06/17/2024 11:29 AM. Electronically signed and approved by: Herman Dykes DO
== END | disposition home or self-care (01) ==
LOC: RADMAMWWP 10:45
PROVIDERS: ATTEND Family Medicine
DX: Z12.31 Encounter for screening mammogram for malignant neoplasm of breast (principal); R92.333 Mammographic heterogeneous density, bilateral breasts; Z80.3 Family history of malignant neoplasm of breast; Z92.0 Personal history of contraception
CPT/HCPCS: 77063; 77067

== ENCOUNTER → 2024-06-24 | Outpatient (CLI) | payer BC ==
--- NOTE | 2024-06-24 09:40 | NM ---
EXAMINATION TYPE: NM hepatobiliary w EF DATE OF EXAM: 06/24/2024 COMPARISON: NONE CLINICAL INDICATION: Female, 44 years old with history of R140 abdominal distention; TECHNIQUE: After the intravenous administration of 5.34 mCi Tc 99m Mebrofenin hepatobiliary scintigra phy is performed. Immediate images post injection. FINDINGS: There is satisfactory initial accumulation of tracer by the liver. The gallbladder is visualized wit hin 6 minutes. The small bowel activity is noted within 24 minutes. At one hour 8 ounces of oral en sure plus is given to mimic CCK and gallbladder ejection fraction is calculated at 81 %, mildly incre ased. IMPRESSION: 1. No scintigraphic evidence for acute/chronic cholecystitis or biliary dyskinesia. 2. Mildly elevated gallbladder ejection fraction at 81% may be seen with gallbladder hyperkinesis. [facility], , 06/24/2024 9:37 AM
== END | disposition home or self-care (01) ==
LOC: RADNMMAIN 06:53
PROVIDERS: ATTEND Family Medicine
DX: K80.80 Other cholelithiasis without obstruction (principal)
CPT/HCPCS: 78226; A9537